=== PATIENT | female | born 1960 | race Caucasian/White ===

== ENCOUNTER → 2017-05-26 | Outpatient (CLI) | payer BC | END | disposition home or self-care (01) | LOC: RAH 15:29 | PROVIDERS: ATTEND Internal Medicine Nephrology | DX: Z12.31 Encounter for screening mammogram for malignant neoplasm of breast (principal) | CPT/HCPCS: 77067 ==

== ENCOUNTER → 2018-03-24 | Outpatient (CLI) | payer OTHER | END | disposition home or self-care (01) | LOC: RAH 13:37 | PROVIDERS: ATTEND Nurse Practitioner Family | DX: N60.02 Solitary cyst of left breast (principal); E11.65 Type 2 diabetes mellitus with hyperglycemia; I10 Essential (primary) hypertension; E78.5 Hyperlipidemia, unspecified; K21.9 Gastro-esophageal reflux disease without esophagitis; E11.9 Type 2 diabetes mellitus without complications | CPT/HCPCS: 76641; 77066 ==

== ENCOUNTER → 2018-10-28 | Outpatient (CLI) | payer OTHER | END | disposition home or self-care (01) | LOC: OIH 13:08 | PROVIDERS: ATTEND Internal Medicine Cardiovascular Disease | DX: Z13.6 Encounter for screening for cardiovascular disorders (principal) | CPT/HCPCS: 75571 ==

== ENCOUNTER → 2018-11-09 | Outpatient (CLI) | payer OTHER | END | disposition home or self-care (01) | LOC: SHCH 15:55 | PROVIDERS: ATTEND Internal Medicine Cardiovascular Disease | DX: R07.9 Chest pain, unspecified (principal) | CPT/HCPCS: 93306 ==

== ENCOUNTER → 2018-12-29 | Outpatient (CLI) | payer BC | END | disposition home or self-care (01) | LOC: RAH 08:20 | PROVIDERS: ATTEND Internal Medicine Nephrology | DX: M47.816 Spondylosis without myelopathy or radiculopathy, lumbar region (principal); M48.061 Spinal stenosis, lumbar region without neurogenic claudication; K57.90 Diverticulosis of intestine, part unspecified, without perforation or abscess without bleeding; N20.0 Calculus of kidney; K76.0 Fatty (change of) liver, not elsewhere classified | CPT/HCPCS: 72131; 74176 ==

== ENCOUNTER → 2020-09-03 | Outpatient (CLI) | payer OTHER | END | disposition home or self-care (01) | LOC: RAH 09:50 | PROVIDERS: ATTEND Internal Medicine Cardiovascular Disease | DX: I10 Essential (primary) hypertension (principal) | CPT/HCPCS: 76770; 93975 ==

== ENCOUNTER → 2021-04-07 | Outpatient (CLI) | payer BC | END | disposition home or self-care (01) | LOC: RAH 07:36 | PROVIDERS: ATTEND Otolaryngology | DX: E04.2 Nontoxic multinodular goiter (principal); E89.0 Postprocedural hypothyroidism | CPT/HCPCS: 76536 ==

== ENCOUNTER 2022-01-16 09:06 | Emergency (ER) | payer OTHER, BC ==
[~2022-01-16] VITALS: Ht 160 cm; Wt 78.9 kg
[2022-01-16 09:29] LABS: BASOPHILS % (AUTO) 0.7 % (0.0-5.0); EOSINOPHILS % (AUTO) 1.2 % (0.0-8.0); HEMATOCRIT 43.4 % (36-48); LYMPHOCYTES % (AUTO) 23.1 % (21.0-51.0); MEAN CORPUSCULAR HEMOGLOBIN 31.6 pg (27.0-33.0); MEAN CORPUSCULAR HGB CONC 33.9 g/dL (32.0-36.0); MEAN CORPUSCULAR VOLUME 93.3 fL (79-99); MONOCYTES % (AUTO) 7.6 % (3.0-13.0); NEUTROPHILS % (AUTO) 67.1 % (40.0-77.0); PLATELET COUNT (AUTO) 234 K/uL (130-400); RED BLOOD CELL COUNT(AUTO) 4.65 MIL/uL (4.00-5.50); RED CELL DISTRIBUTION WIDTH 11.9 % (11.0-15.5); WHITE BLOOD COUNT (AUTO) 7.6 K/uL (4.8-10.8)
[2022-01-16 09:37] LABS: CREATININE 0.8 mg/dL (0.5-1.5); POTASSIUM 3.5 mmol/L (3.5-5.1)
[2022-01-16 09:42] LABS: ALBUMIN 3.9 g/dL (3.5-5.0); TOTAL PROTEIN, SERUM 7.2 g/dL (6.0-8.3)
[2022-01-16 13:13] VITALS: BP 134/86
== END 2022-01-16 13:22 | disposition home or self-care (01) ==
LOC: EDH 09:06
DX: I10 Essential (primary) hypertension (principal); R07.89 Other chest pain; E11.9 Type 2 diabetes mellitus without complications; E78.00 Pure hypercholesterolemia, unspecified
CPT/HCPCS: 36415; 71045; 80053; 84484; 85025; 93005

== ENCOUNTER → 2022-04-08 | Outpatient (CLI) | payer BC | END | disposition home or self-care (01) | LOC: RAH 08:15 | PROVIDERS: ATTEND Internal Medicine Nephrology | DX: Z12.31 Encounter for screening mammogram for malignant neoplasm of breast (principal) | CPT/HCPCS: 77067 ==

== ENCOUNTER → 2022-04-15 | Outpatient (CLI) | payer BC | END | disposition home or self-care (01) | LOC: RAH 12:22 | PROVIDERS: ATTEND Otolaryngology | DX: E04.2 Nontoxic multinodular goiter (principal) | CPT/HCPCS: 76536 ==

== ENCOUNTER → 2023-04-13 | Outpatient (CLI) | payer BC | END | disposition home or self-care (01) | LOC: RAH 07:23 | PROVIDERS: ATTEND Internal Medicine Nephrology | DX: Z12.31 Encounter for screening mammogram for malignant neoplasm of breast (principal); N64.89 Other specified disorders of breast | CPT/HCPCS: 77067 ==

== ENCOUNTER → 2023-04-30 | Outpatient (CLI) | payer BC, MEDICARE | LOC: RAH 09:20 | PROVIDERS: ATTEND Internal Medicine | DX: E04.2 Nontoxic multinodular goiter (principal) | CPT/HCPCS: 10005; 76942 ==